=== PATIENT | female | born 1940 | race Caucasian/White ===

== ENCOUNTER 2019-03-23 19:01 | Inpatient (IN) | payer MEDICARE, MEDICAID ==
[~2019-03-23] VITALS: Ht 160 cm; Wt 63.5 kg
[2019-03-23] MEDS ORDERED: Morphine Sulfate 4mg/ml Inj (IV USE ONLY) IVP ONE (20:45)
[2019-03-23 20:54] VITALS: BP 127/58
--- NOTE | 2019-03-23 20:59 | NUR ---
ER Nurse Note: Pt brought in by [facility] from [facility] c/o LT arm swelling and pain. Per EMS, LT arm swelling occured around 1400 and has not gotten better. Arm pain 09/14, pt able to move arm. Pt hx LT mastectomy. Will continue to [facility].
[2019-03-23 21:42] LABS: BASOPHILS % (AUTO) 0.5 % (0.0-2.0); EOSINOPHILS % (AUTO) 0.2 % (0.0-3.0); HEMATOCRIT 30.1 % (37.0-47.0); HEMOGLOBIN 10.1 G/DL (12.0-16.0); LYMPHOCYTES % (AUTO) 9.4 % (20.0-45.0); MEAN CORPUSCULAR VOLUME 91 FL (80-99); MONOCYTES % (AUTO) 8.5 % (1.0-10.0); NEUTROPHILS % (AUTO) 81.5 % (45.0-75.0); PLATELET COUNT 425 K/UL (150-450); RED BLOOD COUNT 3.29 M/UL (4.20-5.40); RED CELL DISTRIBUTION WIDTH 14.3 % (11.6-14.8); WHITE BLOOD COUNT 14.5 K/UL (4.8-10.8)
[2019-03-23 21:54] LABS: ANION GAP 12 mmol/L (5-15); BLOOD UREA NITROGEN 24 mg/dL (7-18); CALCIUM 9.8 MG/DL (8.5-10.1); CARBON DIOXIDE 25 MMOL/L (21-32); CHLORIDE 101 MMOL/L (98-107); CREATININE 1.2 MG/DL (0.55-1.30); POTASSIUM 3.8 MMOL/L (3.5-5.1); SODIUM 138 MMOL/L (136-145)
[2019-03-23 22:04] LABS: ALANINE AMINOTRANSFERASE 20 U/L (12-78); ALBUMIN 2.3 G/DL (3.4-5.0); ALBUMIN/GLOBULIN RATIO 0.4 (1.0-2.7); ALKALINE PHOSPHATASE 75 U/L (46-116); ASPARTATE AMINO TRANSFERASE 15 U/L (15-37); BILIRUBIN,TOTAL 0.3 MG/DL (0.2-1.0)
--- NOTE | 2019-03-23 22:04 | Emergency Room Report ---
History of Present Illness General Chief Complaint: Edema Source: Medical Record, EMS Present Illness HPI Disclaimer: Please note that this report is being documented using DRAGON technology. This can lead to erroneous entry secondary to incorrect interpretation by the dictating instrument. HPI: This is a 78-year-old female with a history of breast cancer status post left mastectomy, COPD, hypothyroidism and dementia presents for evaluation of left upper extremity swelling. Symptoms began earlier today. At her half-way facility was noted that her left upper extremity was edematous, red, tender. The patient is complaining of significant pain. She was given Tylenol with no effect. She is able to move the left upper extremity though it is limited due to severe pain. Denied any trauma or recent injury. The patient is a poor historian. Information mostly obtained from EMS and medical chart. She is denying chest pain, shortness of breath, cough, back pain, abdominal pain , nausea, vomiting or diarrhea. PMH: [place], hypothyroidism, COPD, dementia, breast cancer status post mastectomy PSH: Left mastectomy Allergies: None reported Social Hx: None reported Allergies: Coded Allergies: No Known Allergies (Unverified , 03/23/19) Nursing Documentation-PMH Past Medical History: No History, Except For Hx Hypertension: Yes Review of Systems All Other Systems: negative except mentioned in HPI Physical Exam Vital Signs Date Time Temp Pulse Resp B/P (MAP) Pulse Ox O2 Delivery O2 Flow Rate FiO2 03/23/19 19:22 99.0 80 18 127/58 (81) 95 Room Air General: Awake and alert, uncomfortable, screaming in pain HEENT: NC/AT. EOMI. Cardiovascular: RRR. S1 and S2 normal. No murmur appreciated Resp: Normal work of breathing. No cough, wheezing or crackles appreciated Abdomen: Abdomen is soft, nondistended. Nontender Skin: The left upper extremity is edematous, erythematous and tender to palpation. No overlying skin breakdown or bruising MSK: Normal tone and bulk. Moving all extremities. No obvious deformity. Circumferential edema of the left upper extremity and 3+ pitting edema. Range of motion in the left hand, wrist and elbow as well as the shoulder limited secondary to pain. 2+ radial pulse. Neuro: Awake and alert. Pleasant but a poor historian. Medical Decision Making Diagnostic Impression: Primary Impression: Edema Additional Impression: Cellulitis ER Course This is a 78-year-old female presenting for evaluation of left upper extremity swelling beginning this afternoon. Differential includes was not limited to DVT , cellulitis, venous insufficiency, occult injury. Will obtain a Doppler study to evaluate for deep vein thrombosis, drug broad labs and provide analgesia. She will likely require admission. Laboratory Tests Test 03/23/19 21:10 White Blood Count 14.5 K/UL (4.8-10.8) H Red Blood Count 3.29 M/UL (4.20-5.40) L Hemoglobin 10.1 G/DL (12.0-16.0) L Hematocrit 30.1 % (37.0-47.0) L Mean Corpuscular Volume 91 FL (80-99) Mean Corpuscular Hemoglobin 30.6 PG (27.0-31.0) Mean Corpuscular Hemoglobin Concent 33.5 G/DL (32.0-36.0) Red Cell Distribution Width 14.3 % (11.6-14.8) Platelet Count 425 K/UL (150-450) Mean Platelet Volume 6.5 FL (6.5-10.1) Neutrophils (%) (Auto) 81.5 % (45.0-75.0) H Lymphocytes (%) (Auto) 9.4 % (20.0-45.0) L Monocytes (%) (Auto) 8.5 % (1.0-10.0) Eosinophils (%) (Auto) 0.2 % (0.0-3.0) Basophils (%) (Auto) 0.5 % (0.0-2.0) Sodium Level 138 MMOL/L (136-145) Potassium Level 3.8 MMOL/L (3.5-5.1) Chloride Level 101 MMOL/L (98-107) Carbon Dioxide Level 25 MMOL/L (21-32) Anion Gap 12 mmol/L (5-15) Blood Urea Nitrogen 24 mg/dL (7-18) H Creatinine 1.2 MG/DL (0.55-1.30) Estimate Glomerular Filtration Rate 43.7 mL/min (>60) Glucose Level 181 MG/DL (74-106) H Calcium Level 9.8 MG/DL (8.5-10.1) Total Bilirubin 0.3 MG/DL (0.2-1.0) Aspartate Amino Transferase (AST) 15 U/L (15-37) Alanine Aminotransferase (ALT) 20 U/L (12-78) Alkaline Phosphatase 75 U/L (46-116) Troponin I 0.000 ng/mL (0.000-0.056) Pro-B-Type Natriuretic Peptide 1863 pg/mL (0-125) H Total Protein 7.8 G/DL (6.4-8.2) Albumin 2.3 G/DL (3.4-5.0) L Globulin 5.5 g/dL Albumin/Globulin Ratio 0.4 (1.0-2.7) L EKG Diagnostic Results EKG Time: 21:01 Rate: normal Rhythm: NSR ST Segments: no acute changes Other Impression Sinus rhythm, normal axis, normal intervals, no ST segment changes Rhythm Strip Diag. Results Rhythm Strip Time: 21:01 EP Interpretation: yes Rate: 94 Rhythm: NSR, no PVC's, no ectopy Reevaluation Time: 23:20 Last Vital Signs Date Time Temp Pulse Resp B/P (MAP) Pulse Ox O2 Delivery O2 Flow Rate FiO2 03/23/19 20:54 99.0 96 18 127/58 95 Room Air Reevaluation Impression Preliminary interpretation by emergency spill response technician does not find evidence of DVT but does show significant edema. Official read pending. Labs have returned within normal limits aside from an elevated BN peptide. Troponin is negative. Will give diuretics. Patient will require admission. Will treat for possible cellulitis. Admit to Dr. Goldman on behalf of Dr. Watkins Disposition: ADMITTED INPATIENT Condition: Serious Storm Covarrubias MD Mar 23, 2019 22:04
[2019-03-23] MEDS ORDERED: ASPIR 8181 MG ORAL (22:20)
[2019-03-23] MEDS ORDERED: DOCUSATE SODIU100 MG ORAL (22:20)
[2019-03-23] MEDS ORDERED: ACETAMINOPHEN500 MG ORAL (22:21)
[2019-03-23] MEDS ORDERED: MILK OF MA2400 MG/10 ORAL (22:21)
[2019-03-23] MEDS ORDERED: BISACODYL5 MG ORAL (22:21)
[2019-03-23] MEDS ORDERED: FUROSEMIDE20 M1 ORAL (22:21)
[2019-03-23] MEDS ORDERED: LEXAPRO10 MG ORAL (22:21)
--- NOTE | 2019-03-23 22:22 | NUR ---
ER Nurse Note: All orders completed per ERMD orders. US at bedside. VSS, RA. Pt LT arm red, swollen, unable to move arm without pain. Pt incontenent; kept clean. No falls. All safety measures met; will continue to montior.
[2019-03-23 23:05] VITALS: BP 138/62
--- NOTE | 2019-03-23 23:07 | NUR ---
ER Nurse Note: US completed. Pt VSS, stable. SLIV patent. All orders completed per ERMD orders. All safety measures met; will continue to montior.
[2019-03-23] MEDS ORDERED: cefTRIAXone 1 GM in NS 55 ML IVPB ONE (23:30)
--- NOTE | 2019-03-24 | NUR ---
NURSE NOTES: Received report from Holly Mccall.
--- NOTE | 2019-03-24 00:20 | NUR ---
ER Nurse Note: Report given to RICK Allen for continuity of care. SLIV RT AC; patent. Pt kept clean and dry. All belonging accounted for. All safety measures met.
[2019-03-24 00:23] VITALS: BP 140/70
[2019-03-24] MEDS ORDERED: Milk of Magnesia 30ml Ud ORAL PRN (00:30)
--- NOTE | 2019-03-24 00:30 | NUR ---
NURSE NOTES: Received patient, awake, alert x 2. Moved patient to room 403-1. All belongings accounted for. Left upper arm , cellulitis, swollen. Skin is intact. Incontinent. IV site noted. Bed in low and locked position. Provided safe environment. Oriented patient to the room, and roommate. call light is at bedside. Will continue plan of care.
[2019-03-24] MEDS: HYDROcodone/Acetamin 5/325 tab ORAL PRN ×3 (01:18→21:59)
[2019-03-24 04:00] VITALS: BP 118/68
--- NOTE | 2019-03-24 07:00 | NUR ---
NURSE NOTES: PT AWAKE ALERT, NO DISTRESS. NO SOB. NO C/O PAIN. CALL LIGHT WITHIN REACH. BED IN LOWEST POSITION, LOCKED. WILL MONITOR. TURNED AND REPOSITIONED. ELEVATED LEFT ARM SWOLLEN AND HAS ERYTHEMA
--- NOTE | 2019-03-24 07:10 | NUR ---
HAND-OFF: Report given to RICK Lombardi.
[2019-03-24 08:00] VITALS: BP 113/61
[2019-03-24] MEDS: Aspirin EC 81mg tab ORAL SCH (08:15)
[2019-03-24] MEDS: Heparin 5000 units/ml inj SUBQ SCH ×2 (08:15→21:41)
[2019-03-24] MEDS: Docusate 100mg cap ORAL SCH ×2 (08:16→17:06)
[2019-03-24 08:45] LABS: HEMATOCRIT 32.5 % (37.0-47.0); HEMOGLOBIN 10.9 G/DL (12.0-16.0); MEAN CORPUSCULAR VOLUME 91 FL (80-99); PLATELET COUNT 451 K/UL (150-450); RED BLOOD COUNT 3.55 M/UL (4.20-5.40); RED CELL DISTRIBUTION WIDTH 14.5 % (11.6-14.8); WHITE BLOOD COUNT 14.5 K/UL (4.8-10.8)
[2019-03-24 09:38] LABS: ALANINE AMINOTRANSFERASE 14 U/L (12-78); ALBUMIN 2.3 G/DL (3.4-5.0); ALBUMIN/GLOBULIN RATIO 0.4 (1.0-2.7); ALKALINE PHOSPHATASE 76 U/L (46-116); ANION GAP 8 mmol/L (5-15); ASPARTATE AMINO TRANSFERASE 13 U/L (15-37); BILIRUBIN,TOTAL 0.3 MG/DL (0.2-1.0); BLOOD UREA NITROGEN 20 mg/dL (7-18); CALCIUM 9.6 MG/DL (8.5-10.1); CARBON DIOXIDE 28 MMOL/L (21-32); CHLORIDE 102 MMOL/L (98-107); CREATININE 1.1 MG/DL (0.55-1.30); POTASSIUM 3.8 MMOL/L (3.5-5.1); SODIUM 138 MMOL/L (136-145)
[2019-03-24 10:06] LABS: % IRON SATURATION 1 % (15-50); IRON 9 ug/dL (50-175); TOTAL IRON BINDING CAPACITY 941 ug/dL (250-450)
--- NOTE | 2019-03-24 10:32 | Diagnostic Imaging Report ---
Indication: Left upper extremity swelling Technique: Grayscale and duplex images of the left upper extremity veins Comparison: none Findings: Exam is somewhat limited due to limited mobility of the left arm. This was his ability of the left axillary vein. In the visualized segments, no definite intraluminal thrombus is demonstrated on grayscale and duplex images. Normal phasic Doppler waveforms. Normal compressibility Impression: Somewhat limited exam. No definite evidence of left upper extremity venous thrombosis
[2019-03-24 12:00] VITALS: BP 100/55
--- NOTE | 2019-03-24 14:45 | NUR ---
NURSE NOTES: DID ROUNDS PER DR BURDEN HE WILL PUT ORDERS FOR CT LEFT ARM
[2019-03-24 16:00] VITALS: BP 143/72
--- NOTE | 2019-03-24 19:22 | NUR ---
NURSE NOTES: Patient is in bed, awake, alert x 3. Able to make simple needs known. Respiration is even and unlabored. No complaint of pain or discomfort noted at this time. IV site noted. Skin is intact, warm and dry to touch. Noted with left arm swelling. Abdomen is soft and non distended. Bed in low and locked position. Provided safe environment. Call light is at bedside. Will continue plan of care.
--- NOTE | 2019-03-24 19:43 | NUR ---
CASE MANAGEMENT: REVIEW 78 YEAR OLD FEMALE BIBA FROM [facility] CC: EDEMA . PAIN 9/10 . HX LEFT MASTECTOMY SI: LEFT UPPER EXTREMITY CELLULITIS T 99.0 HR 80 RR 18 BP 127/58 SAT 95% ROOM AIR WBC 14.5 BUN 24 GLUCOSE 181 BNP 1863 IS: MORPHINE IV X1 CEFTRIAXONE IV X1 LASIX IV X1 PATIENT ADMITTED TO MED/SURG UNIT 03/23/2019 DCP: PATIENT IS FROM [facility]
[2019-03-24 19:46] VITALS: BP 114/51
--- NOTE | 2019-03-24 21:30 | Consultation ---
DATE OF CONSULTATION: 03/24/2019 HISTORY OF PRESENT ILLNESS: This is a 78-year-old female with a history of breast cancer, depression, hard of hearing, dementia who has been admitted to the hospital for medical stabilization. The patient is on Lexapro. The patient is presenting with depressed mood, anhedonia, anxiety. Symptoms are manageable. She is hard of hearing and is a poor historian. She was confused, does not know the date. PAST PSYCHIATRIC HISTORY: Depression and anxiety. PAST MEDICAL HISTORY: [place], COPD, hypothyroidism, breast cancer status post mastectomy. ALLERGIES: No known drug allergies. SUBSTANCE ABUSE HISTORY: No known history of illicit drug use or alcohol. MENTAL STATUS EXAMINATION: The patient is alert and oriented times self and place, did not know the date. Poor insight into the situation she is in. Mood is depressed. Affect is constricted. Congruent with mood. Thought process is concrete. Thought content, no suicidal or homicidal ideation. Cognition is impaired. Insight and judgment is impaired. ASSESSMENT: [place] I Dementia. Major depressive disorder [place] II Deferred. [place] III As above. [place] IV Low. [place] V 20. PLAN: 1. The patient will be started on Lexapro 10 mg in the morning. 2. Provide the patient with reality orientation and supportive therapy. Adis Whitlock M.D. DR: Lukas JOB#: [id number] CC:
[2019-03-24] MEDS: cefTRIAXone 1 GM in D5W 55 ML IVPB SCH (22:02)
[2019-03-25] VITALS: BP 119/58
--- NOTE | 2019-03-25 02:30 | Progress Note ---
DATE: 03/24/2019 CARDIOLOGY AND INTERNAL MEDICINE PROGRESS NOTE SUBJECTIVE: Pain has decreased, swelling has not, and redness is persisting. The patient denies any trauma, but she is an unreliable historian. Psychiatric consultation was appreciated. OBJECTIVE: VITAL SIGNS: Blood pressure 143/72, pulse 103, respiratory rate 18, and afebrile. LUNGS: Clear. CARDIAC: Regular. Normal S1 and S2 with a 1/6 systolic apical murmur. ABDOMEN: Soft. EXTREMITIES: A 2+ left upper extremity edema with erythema and warmth. IMAGING DATA: The echocardiogram with normal ejection fraction, moderate mitral and tricuspid regurgitation. IMPRESSION: 1. Left upper extremity cellulitis, component of lymphedema. 2. History of mastectomy and left breast cancer. 3. Hypertensive heart disease. 4. 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 PLAN: 1. Diuresis. 2. Add TREV inhibitor. 3. Antimicrobials. 4. Limb elevation. 5. Imaging studies of the chest and left upper extremity. 6. DVT prophylaxis. Rashaun Goldman M.D. DR: RODNEY JOB#: [id number] CC:
--- NOTE | 2019-03-25 02:30 | History and Physical Report ---
DATE OF ADMISSION: 03/23/2019 REASON FOR ADMISSION: Left upper extremity edema and cellulitis. HISTORY OF PRESENT ILLNESS: This is a 78-year-old female. She [facility] in [facility]. She has a history of left mastectomy due to breast cancer and was noted to have worsening swelling of her left upper extremity over the past day or two. The left extremity was painful, red, and swollen. There was no apparent trauma. The patient did not respond to acetaminophen and had diminished mobility of the extremity due to pain. PAST MEDICAL HISTORY: Includes chronic obstructive pulmonary disease, hypothyroidism, breast cancer with left mastectomy, depression, cerebrovascular disease with dementia, hypothyroidism, coronary artery disease with history of myocardial infarction, and hypertension. ALLERGIES: None. FAMILY HISTORY: Noncontributory. SOCIAL HISTORY: Negative for smoking, alcohol, or substance abuse. The patient may have smoked in the past, but quantity is unclear. MEDICATIONS: Prior to admission, reviewed and reconciled. ALLERGIES: None known. REVIEW OF SYSTEMS: No fevers or chills. No cough or sputum production. No chest pain or leg swelling. No shortness of breath. No melena or bright red blood per rectum. . She is on thyroid replacement. Cholesterol parameters not known. No history of seizure or stroke, but she does have dementia. PHYSICAL EXAMINATION: VITAL SIGNS: Temperature 99, blood pressure 127/58, heart rate 80, and respiratory rate 18. HEENT: Conjunctivae are pink. Oropharynx clear. NECK: Supple. No adenopathy. LUNGS: Clear. BREASTS: Left mastectomy scar clear. No associated adenopathy. ABDOMEN: Soft. CARDIAC: Regular rhythm and rate. Normal S1 and S2 with a fourth heart sound. EXTREMITIES: Left upper extremity with 2+ edema with decreased range of motion, erythema and warmth. NEUROLOGIC: Alert and oriented x2. No focal deficits. Check venous duplex is negative for DVT. LABORATORY DATA: White count 14.5, hemoglobin 10.1, and platelets 425,000. Sodium 138, potassium 3.8, bicarbonate 25, BUN 24, creatinine 1.2, glucose 181, troponin negative. Pro-natriuretic peptide 1863. Albumin 2.3. EKG, sinus rhythm with no acute abnormalities. IMPRESSION: 1. Cellulitis, left upper extremity. 2. Lymphedema with exacerbation. 3. Acute on chronic diastolic congestive heart failure. 4. Hypertensive heart disease. 5. Type 2 diabetes mellitus with hyperglycemia. PLAN: 1. Antimicrobials. 2. Elevate limb. 3. Imaging studies of the left upper extremity, chest x-ray, DVT prophylaxis. 4. Cautious diuresis and optimization of anti-failure and antihypertensive regimen. 5. Echocardiogram to assess left ventricular function. 6. Further recommendations will follow. Rashaun Goldman M.D. DR: REGGIE JOB#: [id number] CC:
[2019-03-25 04:00] VITALS: BP 110/56
--- NOTE | 2019-03-25 07:08 | NUR ---
HAND-OFF: Report given to Holly Croft.
--- NOTE | 2019-03-25 07:10 | NUR ---
NURSE NOTES: Received patient in bed, awake, patient is alert and oriented x2. Not in respiratory/cardiac distress. Patient's left arm is still with pitting edema but no skin break. Elevated left arm on pillow. Bed is in lowest position and locked. Call light within reach, bed alarm is on. Will continue plan of care.
[2019-03-25 07:22] LABS: BASOPHILS % (AUTO) 0.5 % (0.0-2.0); EOSINOPHILS % (AUTO) 0.8 % (0.0-3.0); HEMATOCRIT 33.3 % (37.0-47.0); LYMPHOCYTES % (AUTO) 11.9 % (20.0-45.0); MEAN CORPUSCULAR VOLUME 93 FL (80-99); MONOCYTES % (AUTO) 6.6 % (1.0-10.0); NEUTROPHILS % (AUTO) 80.2 % (45.0-75.0); PLATELET COUNT 489 K/UL (150-450)
[2019-03-25 07:47] LABS: ALANINE AMINOTRANSFERASE 19 U/L (12-78); ALBUMIN/GLOBULIN RATIO 0.3 (1.0-2.7); ALKALINE PHOSPHATASE 75 U/L (46-116); ANION GAP 5 mmol/L (5-15); ASPARTATE AMINO TRANSFERASE 18 U/L (15-37); BILIRUBIN,TOTAL 0.2 MG/DL (0.2-1.0); BLOOD UREA NITROGEN 22 mg/dL (7-18); CARBON DIOXIDE 30 MMOL/L (21-32); CHLORIDE 103 MMOL/L (98-107); CREATININE 1.1 MG/DL (0.55-1.30); POTASSIUM 4.1 MMOL/L (3.5-5.1); SODIUM 138 MMOL/L (136-145)
[2019-03-25 08:00] VITALS: BP 136/70
[2019-03-25] MEDS: Aspirin EC 81mg tab ORAL SCH (09:44)
[2019-03-25] MEDS: Lisinopril 10mg tab ORAL SCH (09:45)
[2019-03-25] MEDS: Docusate 100mg cap ORAL SCH ×2 (09:45→17:09)
[2019-03-25] MEDS: Heparin 5000 units/ml inj SUBQ SCH ×2 (09:47→21:01)
--- NOTE | 2019-03-25 11:28 | NUR ---
MANAGER NEW PRODUCT NOTE SW met w/ pt to assess her needs. Pt presents as tangential and A&O2-3x. Pt states she does not have POA/AD. Pt currently resides at [address] [address] Copy of POLST in the chart- full code. Pt has one adult daughter Yadi Chiu [phone] and she has no contact w/ her in years. Pt was unable to recall the last time she spoke w/ her sister Jayda Camacho [phone]. Pt provided verbal consent to speak to her sister. SW spoke w/ Jayda Camacho in regards to POA documents. Jayda currently resides in [facility]. STEVENSON encouraged her to consult w/ her mergers and acquisitions attorney if possible to be POA from out of state or Jayda plans to visit pt in this April and initiate POA. Jayda verbalized understanding. Per Jayda, pt has hx of Bipolar D/O and inpatient psych admission, was recently at [facility] a few weeks ago. Pt was evicted from her apartment in [place] last year. Pt receives SSDI and the payee is unknown at this time. Jayda also shared pt's daughter has substance abuse issue and she has been unable to locate her daughter, thus the daughter will not take a part of pt's care/tx. Pt's sister JAYDA CAMACHO [phone] wants to be notified of pt's DC. Signed: 03/25/19 at 1139 by GILBERT GAMINO <Co-Signature Required>
[2019-03-25 12:00] VITALS: BP 119/58
--- NOTE | 2019-03-25 15:22 | Diagnostic Imaging Report ---
Indication: Cough Technique: One view of the chest Comparison: none Findings: Surgical clips are seen in the left axilla. There is some atelectasis or scarring in the right midlung. Lungs and pleural spaces are otherwise clear. The heart size is normal. Impression: Right midlung atelectasis or scarring. No acute process otherwise
--- NOTE | 2019-03-25 15:31 | NUR ---
RADIOLOGY DEPT., ENTIRE ARM AND HAND IMAGED.-P.DYE
--- NOTE | 2019-03-25 15:48 | Diagnostic Imaging Report ---
Indication: Pain and swelling Technique: 2 views of the left hand Comparison: none Findings: No acute fractures. No dislocations. There is mild degenerative joint space narrowing of the second through fifth distal interphalangeal joints. Bones are osteoporotic. Impression: No acute bony trauma Degenerative changes Osteoporotic changes
[2019-03-25 16:00] VITALS: BP 130/76
--- NOTE | 2019-03-25 16:43 | Diagnostic Imaging Report ---
Indications: Pain, swelling, lymphedema Technique: Two views of the left humerus Comparison: None Findings: Positioning is suboptimal; per technologist, patient difficult to position. No definite acute fractures. No dislocations. No radiopaque foreign body Impression: Limited; no gross acute abnormality
--- NOTE | 2019-03-25 17:21 | Diagnostic Imaging Report ---
. Indications: Arm pain Technique: Two views of the left forearm Comparison: None Findings: Positioning is somewhat limited as patient difficult to position due to pain. No acute fractures. No dislocations. The joint spaces are preserved. Impression: Negative
--- NOTE | 2019-03-25 18:00 | NUR ---
NURSE NOTES: Patient refused to take docusate. RN -reducated on medication but patient refused. No bowel movement today.Will continue to monitor.
--- NOTE | 2019-03-25 19:15 | Progress Note ---
DATE: 03/25/2019 SUBJECTIVE: This is a 78-year-old female, who is in bed. She has a change of condition today. She is more confused. Mood irritable and was her nurse today, yelling, screaming. She is hard of hearing. She was confused about the date and situation today. MENTAL STATUS EXAMINATION: Alert and oriented times self and place. Mood is irritable and angry. Affect is constricted, congruent with mood. Thought process is concrete. Thought content, no suicidal or homicidal ideation. Cognition is impaired. PLAN: 1. Continue the citalopram. 2. Ativan as needed. 3. We will continue to reassess. 4. Discussed with the nurse. Adis Whitlock M.D. DR: GUILLERMINA JOB#: [id number] CC: VANESSA
--- NOTE | 2019-03-25 19:24 | NUR ---
HAND-OFF: Report given to
--- NOTE | 2019-03-25 19:30 | NUR ---
NURSE NOTES: Received patient in bed. A&OX1 with confusion. IV site patent and intact. Bed in lowest position. Call light within reach. Will continue to monitor.
[2019-03-25 20:00] VITALS: BP 137/66
[2019-03-25] MEDS: cefTRIAXone 1 GM in D5W 55 ML IVPB SCH (22:24)
[2019-03-26] VITALS: BP 135/72
--- NOTE | 2019-03-26 02:00 | Progress Note ---
DATE: 03/25/2019 CARDIOLOGY AND INTERNAL MEDICINE PROGRESS NOTE SUBJECTIVE: The patient still with left arm pain. X-rays were negative for fracture. OBJECTIVE: VITAL SIGNS: She remains afebrile. Blood pressure 137/66, pulse 99, respiratory rate 20. LUNGS: Clear. CARDIAC: Regular. ABDOMEN: Soft. EXTREMITIES: Left upper extremity with 1+ edema. Warm ____ erythema, slightly better. Lower extremities without edema. LABORATORY DATA: Chest x-ray with scarring at the right base. Labs notable for B12 level of 105. Albumin 2.0. Pro-natriuretic peptide down to 1436. BUN 22, creatinine 1.1, and potassium 4.1. IMPRESSION: 1. Cellulitis, left upper extremity. 2. Breast cancer with left mastectomy. 3. Acute on chronic diastolic congestive heart failure. 4. Severe protein-calorie malnutrition. 5. Severe B12 deficiency. 6. Severe iron deficiency. PLAN: 1. Continue diuresis. 2. Antimicrobials and skin care. 3. B12 supplementation. 4. Iron supplement. 5. Stool occult blood testing. Rashaun Goldman M.D. DR: REGGIE JOB#: [id number] CC:
[2019-03-26 04:00] VITALS: BP 125/65
--- NOTE | 2019-03-26 07:14 | NUR ---
HAND-OFF: Report given to Leanna Sims RN.
--- NOTE | 2019-03-26 07:16 | NUR ---
NURSE NOTES: Received patient in bed, awake, patient is alert and oriented x2. Not in respiratory/cardiac distress. Patient's left arm is still swollen but no skin break. Elevated left arm on pillow. Bed is in lowest position and locked. Call light within reach, bed alarm is on. Will continue plan of care.
[2019-03-26 08:00] VITALS: BP 131/61
[2019-03-26] MEDS: Docusate 100mg cap ORAL SCH (09:00)
--- NOTE | 2019-03-26 09:11 | NUR ---
NURSE NOTES: Received call from Shantell from microbiology. Patient is MRSA nares positive. RN made aware, will relocate patient as soon as possible.
[2019-03-26] MEDS: Lisinopril 10mg tab ORAL SCH (09:45)
[2019-03-26] MEDS: Aspirin EC 81mg tab ORAL SCH (09:45)
[2019-03-26] MEDS: Vitamin B12 1000mcg/ml Inj IM SCH (09:46)
[2019-03-26] MEDS: Heparin 5000 units/ml inj SUBQ SCH ×2 (09:47→20:53)
[2019-03-26] MEDS: Docusate 100mg/10ml Liq ORAL SCH ×2 (10:00→17:23)
[2019-03-26] MEDS ORDERED: Docusate 100mg/10ml Liq NG SCH (10:00)
--- NOTE | 2019-03-26 10:19 | NUR ---
NURSE NOTES: Patient is off the unit for CT of left shoulder in stable condition.
--- NOTE | 2019-03-26 10:50 | NUR ---
NURSE NOTES: Patient came back from CT in stable condition.
--- NOTE | 2019-03-26 10:55 | NUR ---
NURSE NOTES: Transferred patient to another room due to MRSA of nares. Dr. Goldman is aware of MRSA of nares.
[2019-03-26 12:00] VITALS: BP 133/72
--- NOTE | 2019-03-26 13:35 | NUR ---
CASE MANAGEMENT:REVIEW SI;LAILA CELLULITIS. AC/CHR CHF. SEVERE B-12 AND IRON DEFICIENCY, 98.0 94 20 135/72 96% ON RA NO LABS AVAILABLE IS;IRON SUCROSE IV HS CYANACOBALAMIN IM QD ROCEPHIN IV Q24 HRS LASIX IV QD K-DUR PO QD MED SURG STATUS PLAN; DIURESIS. B-12 & IRON SUPPLEMENTATION. OB TESTING. DCP;TO SANDRA XIAO
--- NOTE | 2019-03-26 15:04 | Diagnostic Imaging Report ---
Indication: Left shoulder pain Technique: No IV contrast given, reason not stated. Spiral acquisitions obtained through the left shoulder Multiplanar reconstructions were generated. Total dose length product 105 mGycm. CTDIvol(s) 4 mGy. Radiation dose was minimized using automated exposure control Comparison: none Findings: No acute fracture. No dislocations. There is minimal infiltration of the subcutaneous fat anterior to the proximal forearm. No definite joint effusion. There are surgical clips in the left axilla. There is evidence of prior left mastectomy. The included left lung is clear. There are degenerative changes of the cervical and thoracic spine Impression: No acute bony trauma Equivocal very slight increased attenuation of the anterior upper extremity subcutaneous fat, could indicate cellulitis given stated clinical history of swelling and redness No definite evidence of abscess. Note, however, that evaluation for such is very limited in the absence of IV contrast administration Evidence of prior left axillary node dissection and left mastectomy The CT scanner at [facility] is accredited by the [employer] and the scans are performed using protocols designed to limit radiation exposure to as low as reasonably achievable to attain images of sufficient resolution adequate for diagnostic evaluation.
[2019-03-26 16:00] VITALS: BP 130/60
[2019-03-26] MEDS: HYDROcodone/Acetamin 5/325 tab ORAL PRN (17:23)
--- NOTE | 2019-03-26 19:34 | NUR ---
HAND-OFF: Report given to
--- NOTE | 2019-03-26 19:35 | NUR ---
NURSE NOTES: Received patient in bed. A&OX1 with confusion. IV site patent and intact. Bed in lowest position. Call light within reach. Will continue to monitor.
[2019-03-26 20:00] VITALS: BP 131/58
[2019-03-26] MEDS ORDERED: Iron Sucrose 100 MG in NS 55 ML IV ONE (21:00)
[2019-03-26] MEDS: cefTRIAXone 1 GM in D5W 55 ML IVPB SCH (23:08)
[2019-03-27] VITALS: BP 103/72
[2019-03-27] MEDS ORDERED: Vancomycin 1.25gm/NS Premix IVPB ONE (02:00)
--- NOTE | 2019-03-27 02:16 | Progress Note ---
DATE: 03/26/2019 SUBJECTIVE: The patient is more confused than the first day of the hospitalization. The patient is also irritable. Unable to answer simple questions. MENTAL STATUS EXAMINATION: The patient is alert and oriented times self and place. Mood is irritable. Affect is constricted, congruent with mood. Thought process is concrete. Thought content, no suicidal or homicidal ideation. Cognition is impaired. Insight and judgment are impaired. ASSESSMENT: 1. Acute encephalopathy. 2. Major depressive disorder. PLAN: 1. The patient may benefit from low-dose of antipsychotics. 2. Continue Lexapro. Adis Whitlock M.D. DR: JORDY JOB#: [id number] CC:
--- NOTE | 2019-03-27 02:46 | Progress Note ---
DATE: 03/26/2019 CARDIOLOGY AND INTERNAL MEDICINE PROGRESS NOTE SUBJECTIVE: The patient still has left arm pain with motion. A CT scan reveals no evidence of bony abnormalities or fracture based on changes consistent with cellulitis. OBJECTIVE: VITAL SIGNS: Blood pressure 131/58, heart rate 78, respiratory rate 20, and afebrile. LUNGS: Clear. CARDIAC: Regular. ABDOMEN: Soft. EXTREMITIES: 1+ edema, left upper extremity with erythema and tenderness. LABORATORY DATA: No new lab studies. IMPRESSION: 1. Acute diastolic congestive heart failure. 2. Cellulitis, left upper extremity. 3. History of breast cancer on the left. 4. Iron and B12 deficiency. PLAN: 1. Antimicrobials . 2. Skin care. 3. Vitamin supplementation. 4. Diuresis. 5. Stool occult blood test. Rashaun Goldman M.D. DR: MICHEL JOB#: [id number] CC:
[2019-03-27 03:58] VITALS: BP 123/66
--- NOTE | 2019-03-27 07:18 | NUR ---
HAND-OFF: Report given to Geraldo CABRERA.
[2019-03-27 07:24] LABS: BASOPHILS % (AUTO) 0.8 % (0.0-2.0); EOSINOPHILS % (AUTO) 1.6 % (0.0-3.0); HEMATOCRIT 31.4 % (37.0-47.0); HEMOGLOBIN 10.4 G/DL (12.0-16.0); LYMPHOCYTES % (AUTO) 9.3 % (20.0-45.0); MEAN CORPUSCULAR VOLUME 91 FL (80-99); MONOCYTES % (AUTO) 8.9 % (1.0-10.0); NEUTROPHILS % (AUTO) 79.3 % (45.0-75.0); PLATELET COUNT 519 K/UL (150-450); RED BLOOD COUNT 3.45 M/UL (4.20-5.40); WHITE BLOOD COUNT 9.6 K/UL (4.8-10.8)
[2019-03-27 07:26] LABS: ALANINE AMINOTRANSFERASE 28 U/L (12-78); ALBUMIN 1.7 G/DL (3.4-5.0); ALBUMIN/GLOBULIN RATIO 0.3 (1.0-2.7); ALKALINE PHOSPHATASE 67 U/L (46-116); ANION GAP 8 mmol/L (5-15); ASPARTATE AMINO TRANSFERASE 27 U/L (15-37); BILIRUBIN,TOTAL 0.2 MG/DL (0.2-1.0); BLOOD UREA NITROGEN 24 mg/dL (7-18); CARBON DIOXIDE 25 MMOL/L (21-32); CHLORIDE 104 MMOL/L (98-107); CREATININE 0.8 MG/DL (0.55-1.30); POTASSIUM 4.1 MMOL/L (3.5-5.1); SODIUM 137 MMOL/L (136-145)
--- NOTE | 2019-03-27 07:28 | NUR ---
NURSE NOTES: Patient in supine position, awake and alert, bed in lowest position, call light within reach, on room air, in no apparent distress.
[2019-03-27 08:00] VITALS: BP 126/69
[2019-03-27] MEDS: Docusate 100mg/10ml Liq ORAL SCH ×2 (09:00→17:11)
[2019-03-27] MEDS: Aspirin EC 81mg tab ORAL SCH (09:53)
[2019-03-27] MEDS: Vitamin B12 1000mcg/ml Inj IM SCH (09:54)
[2019-03-27] MEDS: Lisinopril 10mg tab ORAL SCH (09:56)
[2019-03-27] MEDS: Heparin 5000 units/ml inj SUBQ SCH ×2 (09:57→20:51)
[2019-03-27 12:00] VITALS: BP 130/71
[2019-03-27 16:00] VITALS: BP 133/84
--- NOTE | 2019-03-27 19:10 | NUR ---
NURSE NOTES: received patient on bed sleeping comfortably. with iv line on the right ac, saline lock. no facial grimacing noted. bed locked and in lowest position. call light and light button within easy reach. will continue plan of care.
--- NOTE | 2019-03-27 19:39 | NUR ---
HAND-OFF: Report given to Jillian Pineda RN. Patient in supine position, sleeping, respirations at 15 breaths per minute, bed in lowest position, call light within reach, no c/o pain, no SOB, in no apparent distress.
[2019-03-27 20:00] VITALS: BP 111/62
[2019-03-27] MEDS: Iron Sucrose 100 MG in NS 55 ML IV SCH (20:51)
[2019-03-27] MEDS: cefTRIAXone 1 GM in D5W 55 ML IVPB SCH (22:08)
--- NOTE | 2019-03-27 23:15 | Progress Note ---
DATE: 03/27/2019 CARDIOLOGY PROGRESS NOTE SUBJECTIVE: The patient is without shortness of breath. She still has pain over left upper extremity with movement. OBJECTIVE: VITAL SIGNS: Blood pressure 133/84, pulse 86, respiratory rate 20, afebrile. LUNGS: Clear. CARDIAC: Regular. ABDOMEN: Soft. EXTREMITIES: A 1+ edema, diminished erythema, left upper extremity. No lower extremity edema. LABORATORY DATA: Sodium 137, potassium 4.1, bicarb 25, BUN 24, creatinine 0.8 Pro-natriuretic peptide down to 562, albumin 1.7. White count 9.6, hemoglobin 10.4. IMPRESSION: 1. Cellulitis. 2. Sepsis. 3. Recovered anemia. 4. Acute on chronic diastolic congestive heart failure, improved. 5. Left breast cancer, mastectomy, and lymphedema ongoing. 6. Severe protein-calorie malnutrition. 7. Iron deficiency and B12 deficiency. PLAN: 1. Maintenance diuretic therapy now. 2. Discontinue IV Lasix. 3. Continue antimicrobials. 4. Limb elevation, pain control. 5. Discharge planning. 6. Vitamin supplementation. 7. Protein supplement. Arcadio Valdez JOB#: [id number] CC:
[2019-03-28] VITALS: BP 140/74
[2019-03-28] MEDS: Vancomycin 750mg/NS 275ml IVPB SCH ×2 (01:17)
--- NOTE | 2019-03-28 01:44 | NUR ---
NURSE NOTES: pt kept on sliding down on bed. reposition patient for comfort. kept clean and dry.provided rest and comfort. bed locked and in lowest position. call light and light button. will continue plan of care.
[2019-03-28 04:00] VITALS: BP 147/66
--- NOTE | 2019-03-28 07:21 | General Progress Note ---
Assessment/Plan Problem List: (1) Schizophrenia ICD Codes: F20.9 - Schizophrenia, unspecified SNOMED: 77366251 (2) Toxic metabolic encephalopathy ICD Codes: G92 - Toxic encephalopathy SNOMED: 028543218 (3) Edema ICD Codes: R60.9 - Edema, unspecified SNOMED: 271593637, 583817724 (4) Cellulitis ICD Codes: L03.90 - Cellulitis, unspecified SNOMED: 574497568 Status: stable Assessment/Plan: iv abx per id diuresis per cards psych rx monitor lytes dvt/stress ulcer prophylaxis elevate arm Subjective ROS Limited/Unobtainable: No Constitutional: Reports: weakness HEENT: Reports: no symptoms Cardiovascular: Reports: no symptoms Respiratory: Reports: no symptoms Gastrointestinal/Abdominal: Reports: no symptoms Genitourinary: Reports: no symptoms Neurologic/Psychiatric: Reports: no symptoms Endocrine: Reports: no symptoms Hematologic/Lymphatic: Reports: no symptoms Allergies: Coded Allergies: No Known Allergies (Unverified , 03/23/19) All Systems: reviewed and negative except above Subjective no new complaints. decreased pain and swelling left arm. no fevers. on iv abx and iv lasix Objective Last 24 Hour Vital Signs Date Time Temp Pulse Resp B/P (MAP) Pulse Ox O2 Delivery O2 Flow Rate FiO2 03/28/19 04:00 98.3 88 20 147/66 (93) 98 03/28/19 00:00 99.9 89 21 140/74 (96) 98 03/27/19 21:00 Room Air 03/27/19 20:00 99.2 80 20 111/62 (78) 98 03/27/19 16:00 98.3 86 20 133/84 (100) 98 03/27/19 12:00 98.0 81 19 130/71 (90) 98 03/27/19 09:56 126/69 03/27/19 09:00 Room Air 03/27/19 08:00 97.8 84 19 126/69 (88) 97 Intake and Output 03/27/19 03/28/19 19:00 07:00 Intake Total 880 ml 866.666 ml Balance 880 ml 866.666 ml Intake Oral 880 ml 150 ml IV Total 716.666 ml # Voids 8 3 Height (Feet): 5 Height (Inches): 3.00 Weight (Pounds): 140 General Appearance: WD/WN, alert Neck: supple Cardiovascular: regular rhythm Respiratory/Chest: lungs clear Abdomen: normal bowel sounds, non tender, soft, no organomegaly Edema: 2+ Arm (L) Neurologic: under presser II-XII grossly normal, alert, oriented x 3, responsive Danial Watkins MD Mar 28, 2019 07:21
--- NOTE | 2019-03-28 07:22 | NUR ---
HAND-OFF: Report given to david plunkett. endorsed that the pt is high risk for fall. with a dx of dementia . patient kept on sliding down the bed and likes to hang her legs on the siderails. reiterated to observe fall risk preq. bed locked and in lowest position.
--- NOTE | 2019-03-28 07:23 | NUR ---
NURSE NOTES: Received patient in bed asleep, easily aroused. No SOB or acute distress. IV line intact and patent. Legs dangling over side rails, tucked in blanket to prevent falling. Side rails kept up. Bed locked in lowest position, alarm on high sensitivity setting. Call light within reach. Will continue frequent rounding rounding and plan of care.
[2019-03-28 08:00] VITALS: BP 140/78
[2019-03-28] MEDS: Docusate 100mg/10ml Liq ORAL SCH ×2 (08:43→17:25)
[2019-03-28] MEDS: Vitamin B12 1000mcg/ml Inj IM SCH (08:43)
[2019-03-28] MEDS: Aspirin EC 81mg tab ORAL SCH (08:44)
[2019-03-28] MEDS: Lisinopril 10mg tab ORAL SCH (08:44)
[2019-03-28] MEDS: Heparin 5000 units/ml inj SUBQ SCH ×2 (08:45→20:45)
[2019-03-28 12:00] VITALS: BP 116/67
--- NOTE | 2019-03-28 14:56 | NUR ---
CASE MANAGEMENT:REVIEW SI;TOX MET ENCEPHALOPATHY. EDEMA. CELLULITIS. AC/CHR CHF. 99.9 89 21 147/66 97% ON RA NO LABS AVAILABLE IS;VANCOMYCIN IV Q24 HRS IRON SUCROSE HS ROCEPHIN IV Q24 HRS ASA PO QD K-DUR PO QD MED SURG STATUS PLAN; DIURESIS PER CARDIO IV ABX PER ID PSYCH DCP;FROM SANDR[facility] XIAO
--- NOTE | 2019-03-28 15:45 | Progress Note ---
DATE: 03/28/2019 SUBJECTIVE: The patient is more manageable, calmer, asleep and arousable. The patient is having episodes of confusion and is forgetful. MENTAL STATUS EXAMINATION: The patient is alert and oriented times self and place. Mood is neutral. Affect is constricted. Congruent with mood. Thought process is linear. Thought content, no suicidal or homicidal ideation. ASSESSMENT: 1. Cognitive impairment versus dementia. 2. Major depressive disorder. PLAN: 1. Lexapro 10 mg in the morning. 2. Provide the patient with reality orientation and supportive therapy. Adis Whitlock M.D. DR: Lukas JOB#: [id number] CC:
[2019-03-28 16:00] VITALS: BP 124/75
--- NOTE | 2019-03-28 17:52 | NUR ---
NURSE NOTES: Left message for Dr Goldman regarding patient's rashes and suspicion of scabies by wound nurse. Awaiting callback.
--- NOTE | 2019-03-28 18:12 | NUR ---
NURSE NOTES: Patient with generalized body rash. Referred to wound nurse.
--- NOTE | 2019-03-28 18:15 | NUR ---
NURSE NOTES:WOUND CARE NOTES: Called by primary nurse to evaluate pt with rash. Pt noted to have raised pink and red rash few with scales to both upper extremities including both axillae and both wrists,chest ,abdomen including both groin areas ,back ,bilat lower ext including areas around both ankles.Few scaled areas noted. Pt verbalized she has been itchy for few days. Primary nurse instructed to call PCP and communicate observation and for further orders.
--- NOTE | 2019-03-28 18:26 | NUR ---
NURSE NOTES: Spoke to Dr Goldman, will see patient in the morning. No new orders for now. Wound nurse made aware.
--- NOTE | 2019-03-28 19:15 | Progress Note ---
DATE: 03/28/2019 CARDIOLOGY PROGRESS NOTE SUBJECTIVE: The patient had itching and a rash concerned about possible scabies. The patient has no chest pain. No shortness of breath. PHYSICAL EXAMINATION: VITAL SIGNS: Blood pressure 147/66, pulse 88, respiratory rate 20. LUNGS: Clear. CARDIAC: Regular. Normal S1 and S2 ABDOMEN: Soft. EXTREMITIES: With less edema especially in the left upper extremity. Erythema has diminished as well. IMPRESSION: 1. Possible scabies. 2. Improving cellulitis, left upper extremity. 3. History of left breast cancer with mastectomy and lymph node dissection. 4. Acute on chronic diastolic congestive heart failure clinically improved. PLAN: 1. Transition to maintenance diuretic dose. 2. Antimicrobials. 3. Await Infectious Diseases followup. 4. Monitor blood pressure. 5. Reassess for additional therapy. Rashaun Goldman M.D. DR: Meredith JOB#: [id number] CC:
--- NOTE | 2019-03-28 19:20 | NUR ---
per kiarra, she called dr. connors regarding the pt's rashes. per md kiarra will come here tomorrow to evaluate her. pt is restless due to the rashes all over the body. will ensure safety.charge nurse made aware. Addendum: 03/29/19 at 0347 by Alexandra Pineda RN NURSE NOTES:
--- NOTE | 2019-03-28 19:26 | NUR ---
HAND-OFF: Report given to jacqueline. Endorsed high fall risk status to oncoming shift. Side rails raised. Bed locked in lowest position, alarm on high sensitivity setting. Call light within reach. Frequent rounding continues.
--- NOTE | 2019-03-28 19:28 | NUR ---
NURSE NOTES: Received pt on bed, awake. confused. denies any pain or discomfort. bed locked and in lowest position. iv site on the right ac. call light and light button within easy reach. bed locked and in lowest position. will continue plan of care.
[2019-03-28 20:00] VITALS: BP 124/75
[2019-03-28] MEDS: Iron Sucrose 100 MG in NS 55 ML IV SCH (20:44)
[2019-03-28] MEDS: LORazepam 1mg tab ORAL PRN (20:44)
[2019-03-28] MEDS: cefTRIAXone 1 GM in D5W 55 ML IVPB SCH (21:23)
[2019-03-29] VITALS: BP 121/59
[2019-03-29] MEDS: Vancomycin 750mg/NS 275ml IVPB SCH ×2 (01:02)
--- NOTE | 2019-03-29 02:25 | NUR ---
NURSE NOTES: patient on bed awake, sliding down on bed. reposition pt. provided rest and comfort. ensured safety by locking the bed and in lowest position. call light and light button within easy reach. will continue plan of care.
[2019-03-29 04:00] VITALS: BP 106/56
--- NOTE | 2019-03-29 07:09 | NUR ---
HAND-OFF: Report given to david rowland. endorsed that the pt is high risk for fall. with a dx of dementia . patient kept on sliding down the bed and likes to hang her legs on the siderails. reiterated to observe fall risk preq. bed locked and in lowest position.call light and light button within easy reach.
[2019-03-29 07:44] LABS: ANION GAP 10 mmol/L (5-15); BLOOD UREA NITROGEN 22 mg/dL (7-18); CALCIUM 9.9 MG/DL (8.5-10.1); CARBON DIOXIDE 23 MMOL/L (21-32); CHLORIDE 105 MMOL/L (98-107); POTASSIUM 4.1 MMOL/L (3.5-5.1); SODIUM 138 MMOL/L (136-145)
[2019-03-29 08:00] VITALS: BP 141/80
[2019-03-29 08:27] LABS: BASOPHILS % (AUTO) 0.8 % (0.0-2.0); EOSINOPHILS % (AUTO) 2.3 % (0.0-3.0); HEMATOCRIT 29.5 % (37.0-47.0); HEMOGLOBIN 9.7 G/DL (12.0-16.0); LYMPHOCYTES % (AUTO) 13.2 % (20.0-45.0); MEAN CORPUSCULAR VOLUME 91 FL (80-99); MONOCYTES % (AUTO) 11.8 % (1.0-10.0); NEUTROPHILS % (AUTO) 71.9 % (45.0-75.0); PLATELET COUNT 556 K/UL (150-450); RED BLOOD COUNT 3.23 M/UL (4.20-5.40); RED CELL DISTRIBUTION WIDTH 15.2 % (11.6-14.8); WHITE BLOOD COUNT 7.9 K/UL (4.8-10.8)
[2019-03-29] MEDS: Vitamin B-12 500mcg tab ORAL SCH (08:52)
[2019-03-29] MEDS: LORazepam 1mg tab ORAL PRN ×2 (08:52→17:47)
[2019-03-29] MEDS: Lisinopril 10mg tab ORAL SCH (08:52)
[2019-03-29] MEDS: HYDROcodone/Acetamin 5/325 tab ORAL PRN (08:54)
[2019-03-29] MEDS: Heparin 5000 units/ml inj SUBQ SCH ×2 (08:55→21:26)
[2019-03-29] MEDS: Docusate 100mg/10ml Liq ORAL SCH ×2 (08:56→17:47)
[2019-03-29] MEDS: Aspirin EC 81mg tab ORAL SCH (08:56)
--- NOTE | 2019-03-29 09:00 | NUR ---
NURSE NOTES: PT AXOX1, RESTLESS, YELLING, STATES SHE IS IN PAIN. RN ADMINISTERED PRN NORCO 5/325 ORDERED. LUE SWELLING NOTED, ELEVATED LUE ON PILLOW. PT EDUCATED TO KEEP LUE ELEVATED. PT IN SEMI-AGUIRRE'S POSITION. BED IN LOWEST POSITION WITH BEDSIDE RAILS X3 RAISED. BED ALARM ON ZONE 1. CALL LIGHT WITHIN REACH. WILL CONTINUE TO MONITOR.
--- NOTE | 2019-03-29 11:00 | General Progress Note ---
Assessment/Plan Problem List: (1) Schizophrenia ICD Codes: F20.9 - Schizophrenia, unspecified SNOMED: 45006320 (2) Toxic metabolic encephalopathy ICD Codes: G92 - Toxic encephalopathy SNOMED: 085436066 (3) Edema ICD Codes: R60.9 - Edema, unspecified SNOMED: 688937888, 610482838 (4) Cellulitis ICD Codes: L03.90 - Cellulitis, unspecified SNOMED: 341863643 Status: stable Assessment/Plan: iv abx per id diuresis per cards psych rx monitor lytes dvt/stress ulcer prophylaxis elevate arm Subjective ROS Limited/Unobtainable: No Constitutional: Reports: weakness HEENT: Reports: no symptoms Cardiovascular: Reports: no symptoms Respiratory: Reports: no symptoms Gastrointestinal/Abdominal: Reports: no symptoms Genitourinary: Reports: no symptoms Neurologic/Psychiatric: Reports: no symptoms Endocrine: Reports: no symptoms Hematologic/Lymphatic: Reports: no symptoms Allergies: Coded Allergies: No Known Allergies (Unverified , 03/23/19) All Systems: reviewed and negative except above Subjective no new complaints. decreased pain and swelling left arm. no fevers. on iv abx. id eval pending Objective Last 24 Hour Vital Signs Date Time Temp Pulse Resp B/P (MAP) Pulse Ox O2 Delivery O2 Flow Rate FiO2 03/29/19 08:52 141/80 03/29/19 08:00 98.3 93 19 141/80 (100) 93 03/29/19 04:00 97.8 89 20 106/56 (73) 96 03/29/19 00:00 98.2 80 21 121/59 (79) 96 03/28/19 21:00 Room Air 03/28/19 20:00 98.0 86 18 124/75 (91) 98 03/28/19 16:00 98.0 86 18 124/75 (91) 98 03/28/19 12:00 97.8 81 18 116/67 (83) 97 Intake and Output 03/28/19 03/29/19 19:00 07:00 Intake Total 1000 ml 200 ml Balance 1000 ml 200 ml Intake Oral 1000 ml 200 ml # Voids 8 5 Laboratory Tests 03/29/19 06:50: White Blood Count 7.9, Red Blood Count 3.23L, Hemoglobin 9.7L, Hematocrit 29.5L , Mean Corpuscular Volume 91, Mean Corpuscular Hemoglobin 30.0, Mean Corpuscular Hemoglobin Concent 32.8, Red Cell Distribution Width 15.2H, Platelet Count 556H, Mean Platelet Volume 5.6L, Neutrophils (%) (Auto) 71.9, Lymphocytes (%) (Auto) 13.2L, Monocytes (%) (Auto) 11.8H, Eosinophils (%) (Auto ) 2.3, Basophils (%) (Auto) 0.8, Sodium Level 138, Potassium Level 4.1, Chloride Level 105, Carbon Dioxide Level 23, Anion Gap 10, Blood Urea Nitrogen 22H, Creatinine 1.0, Estimat Glomerular Filtration Rate 53.9, Glucose Level 146H , Calcium Level 9.9, Magnesium Level 2.0, Pro-B-Type Natriuretic Peptide 540H Height (Feet): 5 Height (Inches): 3.00 Weight (Pounds): 140 Objective General Appearance: WD/WN, alert Neck: supple Cardiovascular: regular rhythm Respiratory/Chest: lungs clear Abdomen: normal bowel sounds, non tender, soft, no organomegaly Edema: 2+ Arm (L) Neurologic: denture finisher II-XII grossly normal, alert, oriented x 3, responsive Danial Watkins MD Mar 29, 2019 11:00
[2019-03-29 12:00] VITALS: BP 106/66
[2019-03-29 16:00] VITALS: BP 131/66
--- NOTE | 2019-03-29 19:15 | NUR ---
HAND-OFF: Report given to Yris KUMAR RN.
--- NOTE | 2019-03-29 19:36 | NUR ---
NURSE NOTES: Received patient in bed, awake, disoriented, confused, total care, no acute distress noted, fall precautions are enforced, call light is within reach, bed alarm is on, bed lowered. IV site is clean dry and intact, will continue to monitor for comfort and safety.
[2019-03-29 20:00] VITALS: BP 129/74
[2019-03-29] MEDS: Iron Sucrose 100 MG in NS 55 ML IV SCH (21:25)
[2019-03-29] MEDS: cefTRIAXone 1 GM in D5W 55 ML IVPB SCH (23:08)
[2019-03-30] VITALS: BP 137/74
--- NOTE | 2019-03-30 02:15 | Progress Note ---
DATE: 03/29/2019 SUBJECTIVE: Decreased pain and swelling noted, no fevers. PHYSICAL EXAMINATION: VITAL SIGNS: Blood pressure 141/80, pulse 93, respiratory rate 19. SKIN: No itching. LUNGS: Diminished breath sounds. CARDIAC: Regular. ABDOMEN: Soft. EXTREMITIES: Left upper extremity with less edema. LABORATORY AND DIAGNOSTIC DATA: White count 7.9, hemoglobin is 9.7. Potassium 4.1. Pro-natriuretic peptide 540. IMPRESSION: 1. Cellulitis. 2. Acute on chronic diastolic congestive heart failure. 3. Possible scabies. 4. Iron-deficiency. 5. B12 deficiency. PLAN: 1. Vitamin supplement. 2. Maintenance diuretic. 3. Antimicrobials. 4. Skin care. Rashaun Goldman M.D. DR: Meredith JOB#: [id number] CC:
[2019-03-30] MEDS: Vancomycin 750mg/NS 275ml IVPB SCH ×2 (02:47)
--- NOTE | 2019-03-30 03:45 | Progress Note ---
DATE: 03/29/2019 SUBJECTIVE: The patient is more confused than initial evaluation, who was able to answer the questions appropriately and the patient is more confused. MENTAL STATUS EXAMINATION: The patient is alert, confused, and disoriented. Mood is anxious. Affect is flat. Thought process, there is a paucity of thought content. Thought content, no suicidal or homicidal ideation. Cognition is impaired. Insight and judgment is impaired. ASSESSMENT: 1. Major depressive disorder. 2. Dementia. 3. Acute encephalopathy. PLAN: 1. We will continue current medications. 2. Provide the patient with reality orientation. Adis Whitlock M.D. DR: ANIYAH JOB#: [id number] CC:
[2019-03-30 04:00] VITALS: BP 122/87
--- NOTE | 2019-03-30 06:57 | NUR ---
NURSE NOTES: Received report from RICK Hays. Patient sleeping in supine position, blanket over head, bed in lowest position, call light within reach, respirations at 16 breaths per minute, in no apparent distress. Addendum: 03/30/19 at 0725 by ANA NAYLOR RN RICK Hays, endorsed that patient is a high fall risk. Side rails up x 3, was told that patient tries to get out of bed, patient is bedbound.
--- NOTE | 2019-03-30 07:14 | NUR ---
HAND-OFF: Report given to Geraldo CABRERA. Addendum: 03/30/19 at 0726 by GEOFF KUMAR RN Endorsed to Geraldo CABRERA that patient is a high fall risk, fall precautions will be implemented at all times.
[2019-03-30 08:00] VITALS: BP 120/60
[2019-03-30] MEDS: Vitamin B-12 500mcg tab ORAL SCH (08:35)
[2019-03-30] MEDS: Docusate 100mg/10ml Liq ORAL SCH ×2 (08:35→17:49)
[2019-03-30] MEDS: Aspirin EC 81mg tab ORAL SCH (08:35)
[2019-03-30] MEDS: Lisinopril 10mg tab ORAL SCH (08:36)
[2019-03-30] MEDS: Heparin 5000 units/ml inj SUBQ SCH ×2 (08:36→20:34)
[2019-03-30 12:00] VITALS: BP 121/62
--- NOTE | 2019-03-30 12:43 | General Progress Note ---
Assessment/Plan Problem List: (1) Schizophrenia ICD Codes: F20.9 - Schizophrenia, unspecified SNOMED: 74913102 (2) Toxic metabolic encephalopathy ICD Codes: G92 - Toxic encephalopathy SNOMED: 980857002 (3) Edema ICD Codes: R60.9 - Edema, unspecified SNOMED: 623889671, 146846568 (4) Cellulitis ICD Codes: L03.90 - Cellulitis, unspecified SNOMED: 506460360 Status: stable Assessment/Plan: iv abx per id diuresis per cards psych rx monitor lytes dvt/stress ulcer prophylaxis elevate arm dc planning on po abx tomorrow Subjective ROS Limited/Unobtainable: No Constitutional: Reports: malaise, weakness HEENT: Reports: no symptoms Cardiovascular: Reports: no symptoms Respiratory: Reports: cough Gastrointestinal/Abdominal: Reports: no symptoms Genitourinary: Reports: no symptoms Neurologic/Psychiatric: Reports: pre-existing deficit Endocrine: Reports: no symptoms Hematologic/Lymphatic: Reports: no symptoms Allergies: Coded Allergies: No Known Allergies (Unverified , 03/23/19) All Systems: reviewed and negative except above Subjective no new complaints. decreased pain and swelling left arm. no fevers. on iv abx. Objective Last 24 Hour Vital Signs Date Time Temp Pulse Resp B/P (MAP) Pulse Ox O2 Delivery O2 Flow Rate FiO2 03/30/19 09:00 Room Air 03/30/19 08:36 120/60 03/30/19 08:00 97.8 81 20 120/60 (80) 98 03/30/19 04:00 97.4 78 22 122/87 (99) 97 03/30/19 00:00 97.4 74 18 137/74 (95) 97 03/29/19 21:52 Room Air 03/29/19 20:00 98.7 78 20 129/74 (92) 97 03/29/19 16:00 98.0 91 17 131/66 (87) 96 Intake and Output 03/29/19 03/30/19 19:00 07:00 Intake Total 480 ml Balance 480 ml Intake Oral 480 ml # Voids 3 3 Laboratory Tests 03/30/19 01:10: Vancomycin Level Trough 9.4 Height (Feet): 5 Height (Inches): 3.00 Weight (Pounds): 140 Objective General Appearance: WD/WN, alert Neck: supple Cardiovascular: regular rhythm Respiratory/Chest: lungs clear Abdomen: normal bowel sounds, non tender, soft, no organomegaly Edema: 2+ Arm (L) Neurologic: end user consultant II-XII grossly normal, alert, oriented x 3, responsive Danial Watkins MD Mar 30, 2019 12:43
[2019-03-30] MEDS ORDERED: D5 1/2NS 1000ml IV ONE (14:09)
[2019-03-30] MEDS ORDERED: NS 500ML ONE (14:10)
--- NOTE | 2019-03-30 15:00 | Consultation ---
DATE OF CONSULTATION: 03/30/2019 INFECTIOUS DISEASES CONSULTATION This consult is for coverage of Dr. Rivera. CONSULTING PHYSICIAN: Bryson Mauro M.D. PRIMARY ATTENDING PHYSICIAN: Rashaun Goldman M.D. REASON FOR CONSULTATION: Left arm cellulitis. HISTORY OF PRESENT ILLNESS: This is a 78-year-old female [facility] because of pain, swelling, and edema of left upper extremity that was started 1 or 2 days before admission. At the time of admission, she had leukocytosis. She has history of left mastectomy for breast cancer many years ago. She started treatment on ceftriaxone since day of admission. Vancomycin was added on 03/27/2019. She also has psychiatric issues and is not a good source of history. PAST MEDICAL HISTORY: Breast cancer status post left mastectomy, COPD, hypothyroidism, anemia, diastolic CHF, diabetes, hypertension. ALLERGIES: No known drug allergies. MEDICATIONS: Getting cyanocobalamin, vancomycin, IV iron, Colace, lisinopril, ceftriaxone, lorazepam, aspirin, Lexapro, heparin, [place]. SOCIAL HISTORY: [facility] resident. No recent history of alcohol, drug abuse, smoking. REVIEW OF SYSTEMS: Very poor historian. Answer many question with I do not know. Seems to be sad and crying easily. PHYSICAL EXAMINATION: VITAL SIGNS: Temperature 97.8, pulse 81, blood pressure 120/60. GENERAL APPEARANCE: No acute distress. HEAD AND NECK: Have no teeth. HEART: Normal rate. LUNGS: Clear. ABDOMEN: Soft and nontender. EXTREMITIES: Left arm edema. No erythema. No open wounds. SKIN: Left breast small radical mastectomy scar. NEUROLOGIC: She is awake and alert, responsive, depressed and demented. LABORATORY AND DIAGNOSTIC DATA: WBC 7.9, hemoglobin 9.7, hematocrit 29.5, and platelets 556. Sodium 138, potassium 4.1, chloride 105, bicarbonate 23, BUN 22, creatinine 1, glucose 146. MRSA screening culture was positive. VRE negative. KPC negative. IMPRESSION: Cellulitis of left upper extremity, improving. Seems to have chronic lymphedema of the left upper extremity, iron-deficiency anemia, also have vitamin B12 deficiency, diastolic CHF, hypertension, hypothyroidism , major depression, and dementia. RECOMMENDATIONS: May discontinue vancomycin and ceftriaxone. We will start on p.o. doxycycline for three days.Keep the left arm elevated. At the end of my exam, I thank Dr. Goldman, for involving me in the care of this patient. Bryson Mauro M.D. DR: Denise JOB#: [id number] CC: VANESSA
[2019-03-30 16:00] VITALS: BP 130/66
--- NOTE | 2019-03-30 19:13 | NUR ---
HAND-OFF: Report given to Jeanne Mendoza RN. Patient in supine position, sleeping, respirations at 16 breaths per minute, room air, bed in lowest position, call light within reach, siderails up x 3, no c/o pain, no SOB, in no apparent distress, pillow under left arm.
--- NOTE | 2019-03-30 19:22 | NUR ---
NURSE NOTES: Received patient awake, oriented x 1, confused, resting in bed, kept clean and dry.
[2019-03-30 20:24] VITALS: BP 95/52
[2019-03-30] MEDS: Doxycycline Monohydrate 100mg ORAL SCH (20:32)
[2019-03-30] MEDS: Iron Sucrose 100 MG in NS 55 ML IV SCH (20:33)
[2019-03-31 00:09] VITALS: BP 105/60
--- NOTE | 2019-03-31 02:15 | Progress Note ---
DATE: 03/30/2019 CARDIOLOGY PROGRESS NOTE SUBJECTIVE: The patient has less pain and swelling. OBJECTIVE: VITAL SIGNS: Blood pressure 120/60, pulse 81, respirations 20. LUNGS: Clear. CARDIAC: Regular. ABDOMEN: Soft. EXTREMITIES: Trace edema. Left upper extremity with less erythema. IMPRESSION: 1. Cellulitis, resolved. 2. Acute on chronic diastolic congestive heart failure, now clinically compensated. 3. Hypertension, controlled. 4. B12 and iron deficiencies on replacement therapy. PLAN: 1. Iron replacement. 2. Continue current cardiovascular regimen including maintenance dose diuretic. 3. Oral antibiotics per Infectious Disease salesforce consultant. 4. Discharge planning. Rashaun Goldman M.D. DR: JONG JOB#: [id number] CC:
[2019-03-31 04:12] VITALS: BP 116/54
--- NOTE | 2019-03-31 06:53 | NUR ---
NURSE NOTES: Received report from Jeanne Roche RN. Patient sleeping in supine position, on room air, respirations at 15 breaths per minute, bed in lowest position, call light within reach.
--- NOTE | 2019-03-31 07:06 | NUR ---
HAND-OFF: Report given to Geraldo Herrera RN.
[2019-03-31] MEDS ORDERED: DOXYCYCLINE MO100 MG ORAL (07:28)
[2019-03-31 08:00] VITALS: BP 131/74
[2019-03-31] MEDS: Doxycycline Monohydrate 100mg ORAL SCH (08:57)
[2019-03-31] MEDS: Lisinopril 10mg tab ORAL SCH (08:57)
[2019-03-31] MEDS: Docusate 100mg/10ml Liq ORAL SCH (08:57)
[2019-03-31] MEDS: Vitamin B-12 500mcg tab ORAL SCH (08:58)
[2019-03-31] MEDS: Aspirin EC 81mg tab ORAL SCH (08:58)
[2019-03-31] MEDS: Heparin 5000 units/ml inj SUBQ SCH (09:01)
--- NOTE | 2019-03-31 10:26 | Infectious Diseases Prog Note ---
Assessment/Plan Assessment/Plan IMPRESSION: Cellulitis of left upper extremity, improving. chronic lymphedema of the left upper extremity, Iron-deficiency anemia, Vitamin B12 deficiency, Diastolic CHF, hypertension, hypothyroidism , major depression, Dementia. RECOMMENDATIONS: Continue p.o. doxycycline for 2 days. Keep the left arm elevated Subjective ROS Limited/Unobtainable: Yes Allergies: Coded Allergies: No Known Allergies (Unverified , 03/23/19) Objective Vital Signs Last 24 Hour Vital Signs Date Time Temp Pulse Resp B/P (MAP) Pulse Ox O2 Delivery O2 Flow Rate FiO2 03/31/19 09:00 Room Air 03/31/19 08:57 131/74 03/31/19 08:00 97.9 76 16 131/74 (93) 99 03/31/19 04:12 98.4 77 22 116/54 (74) 95 03/31/19 00:09 97.4 83 21 105/60 (75) 97 03/30/19 20:24 98.4 83 22 95/52 (66) 96 03/30/19 20:12 Room Air 03/30/19 16:00 98.0 92 20 130/66 (87) 98 03/30/19 12:00 97.8 80 20 121/62 (81) 98 Height (Feet): 5 Height (Inches): 3.00 Weight (Pounds): 140 General Appearance: no acute distress HEENT: mucous membranes moist Respiratory/Chest: lungs clear Breasts: other - left mastectomy Cardiovascular: normal rate Abdomen: soft, non tender Extremities: other - edema of left arm Skin: rash Neurologic/Psychiatric: other - sleeping Current Medications Medications (Trade) Dose Ordered Sig/Freddy Route PRN Reason Start Time Stop Time Status Last Admin Dose Admin Acetaminophen (Tylenol) 650 mg Q4H PRN ORAL Mild Pain/Temp > 100.5 03/24/19 00:30 04/23/19 00:29 03/25/19 09:45 Aspirin (Ecotrin) 81 mg DAILY ORAL 03/24/19 09:00 04/23/19 08:59 03/31/19 08:58 Cyanocobalamin (Vitamin B-12) 1,000 mcg DAILY ORAL 03/29/19 09:00 04/28/19 08:59 03/31/19 08:58 Docusate Sodium (Colace) 100 mg TWICE A DAY ORAL 03/26/19 10:00 04/25/19 09:59 03/31/19 08:57 Doxycycline Monohydrate (Doxycycline Monohydrate) 100 mg EVERY 12 HOURS ORAL 03/30/19 21:00 04/06/19 20:59 03/31/19 08:57 Escitalopram Oxalate (Lexapro) 10 mg DAILY ORAL 03/24/19 09:00 04/23/19 08:59 03/31/19 08:57 Heparin Sodium (Porcine) (Heparin 5000 units/ml) 5,000 units EVERY 12 HOURS SUBQ 03/24/19 09:00 04/23/19 08:59 03/31/19 09:01 Iron Sucrose 100 mg/Sodium Chloride 60 ml @ 240 mls/hr BEDTIME IV 03/27/19 21:00 03/31/19 21:14 03/30/19 20:33 Lisinopril (ZestriL) 10 mg DAILY ORAL 03/25/19 09:00 04/24/19 08:59 03/31/19 08:57 Lorazepam (Ativan) 1 mg Q6H PRN ORAL For Anxiety 03/24/19 14:15 03/31/19 14:14 03/29/19 17:47 Magnesium Hydroxide (Mom) 30 ml DAILYPRN PRN ORAL Constipation 03/24/19 00:30 04/23/19 00:29 03/29/19 08:54 Potassium Chloride (K-Dur) 20 meq DAILY ORAL 03/24/19 00:30 04/23/19 00:29 03/31/19 08:57 Bryson Mauro MD Mar 31, 2019 10:26
[2019-03-31 12:00] VITALS: BP 134/82
--- NOTE | 2019-03-31 14:32 | NUR ---
*-*DISCHARGE PLANNING*-* PATIENT HAS BEEN REFERRED BACK TO: [facility] P: [phone] F: [phone] *-*CLINICALS FAXED*-*
--- NOTE | 2019-03-31 14:34 | NUR ---
*-*DISCHARGE PLANNING*-* PATIENT HAS BEEN ACCEPTED BACK TO: [facility] P: [phone] F: [phone]
--- NOTE | 2019-03-31 14:35 | NUR ---
*-*DISCHARGE PLANN*-* PATIENT HAS BEEN ACCEPTED BACK TO: [facility] P: [phone] F: [phone] RM# [id number] [facility] S[facility]W JANELL [id number] ETA 3:30PM/ 1530PM
[2019-03-31 16:00] VITALS: BP_SYST 131; BP_SYST 139; BP_DIAS 74
--- NOTE | 2019-03-31 16:56 | NUR ---
NURSE NOTES: Patient going to [facility]. Gave report to John. Patient leaving with ambulance personnel in stable condition. Belongings given to ambulance personnel.
--- NOTE | 2019-03-31 17:15 | Discharge Summary ---
DATE OF ADMISSION: 03/23/2019 DATE OF DISCHARGE: 03/31/2019 ADMISSION DIAGNOSES: 1. Left upper extremity cellulitis. 2. History of encephalopathy. 3. History of schizoaffective disorder and schizophrenia. 4. Hypertension. 5. History of breast cancer, status post left mastectomy. 6. Lymphedema, cellulitis. DISCHARGE DIAGNOSES: 1. Left upper extremity cellulitis. 2. History of encephalopathy. 3. History of schizoaffective disorder and schizophrenia. 4. Hypertension. 5. History of breast cancer, status post left mastectomy. 6. Lymphedema, cellulitis. HOSPITAL COURSE: The patient is a pleasant female admitted from a residential facility with complaints of cellulitis evident in the entire left upper extremity. She has a prior history of mastectomy and has some chronic edema, but she had significantly more edema, erythema, and warmth of the arm. She received intravenous antibiotics. Cellulitis gradually improved. She had a venous duplex that showed no evidence of any DVT. CT scan of the shoulder showed no evidence of any joint infection or abscess. The patient had slow clinical improvement with IV antibiotic therapy, but upon discharge was stable for discharge. She was sent back to the residential facility. She will continue another week of oral antibiotic therapy. DISCHARGE MEDICATIONS: Please see discharge medication list for discharge medications. DIET: Regular. ACTIVITY: Ad-jazmine. FOLLOWUP: The patient will be followed up in one to two days at [facility]. Danial Watkins M.D. DR: CARLOS JOB#: [id number] CC:
--- NOTE | 2019-03-31 22:15 | Progress Note ---
DATE: 03/31/2019 CARDIOLOGY PROGRESS NOTE SUBJECTIVE: No shortness of breath. No chest pain. Left upper extremity swelling significantly reduced. Decreased pain. No redness and mobility improved. OBJECTIVE: VITAL SIGNS: Blood pressure 134/82, heart rate 74, respirations 17, afebrile, oxygen saturation 97% on room air. LUNGS: Clear. CARDIAC: Regular. Normal S1, S2 with a fourth heart sound. ABDOMEN: Soft. EXTREMITIES: Left upper extremity with minimal edema. IMPRESSION: 1. Cellulitis left upper extremity, resolving. 2. Concomitant resolution of edema. 3. Acute diastolic congestive heart failure, now clinically compensated. 4. Hypertensive heart disease with controlled blood pressure. 5. B12 and iron deficiencies, on replacement therapy. 6. Disposition, stable for return to [facility] facility. 7. Discharge medication regimen including cardiovascular drugs reviewed and reconciled with Dr. Watkins. 8. Maintenance dose diuretic discussed. Rashaun Goldman M.D. DR: KAYLEEN JOB#: [id number] CC:
== END 2019-03-31 16:58 | DRG 602 ==
LOC: EDBD 19:01 → EMR 21:00 → 4E 23:00 → EDBEDREQ 03-24 00:09 → 4E 03-24 00:30
DX: L03.114 Cellulitis of left upper limb (principal); I50.33 Acute on chronic diastolic (congestive) heart failure; E43 Unspecified severe protein-calorie malnutrition; G92 Toxic encephalopathy; I97.2 Postmastectomy lymphedema syndrome; E11.65 Type 2 diabetes mellitus with hyperglycemia; I11.0 Hypertensive heart disease with heart failure; J44.9 Chronic obstructive pulmonary disease, unspecified; Z85.3 Personal history of malignant neoplasm of breast; E03.9 Hypothyroidism, unspecified; F01.50 Vascular dementia, unspecified severity, without behavioral disturbance, psychotic disturbance, mood disturbance, and anxiety; I25.2 Old myocardial infarction; F25.9 Schizoaffective disorder, unspecified; F32.9 Major depressive disorder, single episode, unspecified; Z79.82 Long term (current) use of aspirin; I34.0 Nonrheumatic mitral (valve) insufficiency; I36.1 Nonrheumatic tricuspid (valve) insufficiency; H91.90 Unspecified hearing loss, unspecified ear; E61.1 Iron deficiency; E53.8 Deficiency of other specified B group vitamins; Y83.8 Other surgical procedures as the cause of abnormal reaction of the patient, or of later complication, without mention of misadventure at the time of the procedure
CPT/HCPCS: 36415; 71045; 80048; 80053; 80202; 82607; 82746; 83036; 83540; 83550; 83735; 83880; 84443; 84484; 85007; 85025; 87081; 93005; 93306; 93931; 96365; 96375; 99285; J8499

== ENCOUNTER 2019-04-03 02:07 | Emergency (ER) | payer MEDICARE, MEDICAID ==
[~2019-04-03] VITALS: Ht 157.5 cm; Wt 68.0 kg
[~2019-04-03 02:07] MED LIST: ACETAMINOPHEN500 MG ORAL; ASPIR 8181 MG ORAL; BISACODYL5 MG ORAL; DOCUSATE SODIU100 MG ORAL; DOXYCYCLINE MO100 MG ORAL; FUROSEMIDE20 M1 ORAL; LEXAPRO10 MG ORAL; MILK OF MA2400 MG/10 ORAL
--- NOTE | 2019-04-03 02:14 | Emergency Room Report ---
History of Present Illness General Chief Complaint: Multiple Trauma/Fall Source: Patient Present Illness HPI Patient presents from nursing facility with reports of forehead trauma Patient had an unwitnessed fall had obvious trauma to the forehead and sent to the emergency room patient has some mild underlying dementia makes the history of present illness somewhat limited Denies any headache denies any chest pain denies any back or flank pain Patient does not recall how she fell Allergies: Coded Allergies: No Known Allergies (Unverified , 03/23/19) Patient History Limited by: medical condition Past Medical History: see triage record Last Menstrual Period: na Now: No : 2 Para: 2 Reviewed Nursing Documentation: PMH: Agreed; PSxH: Agreed Nursing Documentation-PMH Hx Cardiac Problems: Yes - TX Hx Hypertension: Yes Hx COPD: Yes Hx Cancer: Yes - breast 2019 Hx Gastrointestinal Problems: No History Of Psychiatric Problem: Yes - dementia Hx Neurological Problems: Yes - hypothyroid Hx Dementia: Yes Review of Systems All Other Systems: limited - Other than the ones mentioned in the history of present illness all others are reviewed however they do stay limited due to the patient's mental status Physical Exam Vital Signs Date Time Temp Pulse Resp B/P (MAP) Pulse Ox O2 Delivery O2 Flow Rate FiO2 04/03/19 02:08 98.6 82 18 110/64 (79) 98 Room Air Sp02 EP Interpretation: reviewed, normal General Appearance: no apparent distress Head: other - 2 x 3 cm hematoma left forehead Eyes: bilateral eye PERRL ENT: EOM grossly intact, normal pharynx Neck: supple Respiratory: lungs clear, no retraction, no accessory muscle use Cardiovascular #1: regular rate, rhythm Gastrointestinal: non tender, soft Genitourinary: no CVA tenderness Musculoskeletal: other - Lymphedema involving the left arm Neurologic: alert Psychiatric: normal inspection Skin: other - Erythema rash involving the forearm on the right side lymphedema left arm Lymphatic: no adenopathy Medical Decision Making Diagnostic Impression: Primary Impression: Hematoma Additional Impression: Head injury ER Course Given the patient's history and presentation CT imaging was obtained no obvious intracranial hemorrhage is seen Patient remains hemodynamically stable remains awake and appropriate At this time is stable for close outpatient follow-up Rhythm Strip Diag. Results EP Interpretation: yes Rate: 80 Rhythm: NSR, no PVC's, no ectopy CT/MRI/US Diagnostic Results CT/MRI/US Diagnostic Results : Impression CT head : Soft tissue changes no acute intracranial hemorrhage Last Vital Signs Date Time Temp Pulse Resp B/P (MAP) Pulse Ox O2 Delivery O2 Flow Rate FiO2 04/03/19 02:08 98.6 82 18 110/64 (79) 98 Room Air Status: improved Disposition: XFER SNF Condition: Improved Scripts Nystatin (NYSTATIN) 15 Gm Powder 1 GM TP BID for 7 Days, GM Prov: Taj Cook DO 04/03/19 Additional Instructions: Transfer back to nursing facility Taj Cook DO Apr 03, 2019 02:14
[2019-04-03 02:15] VITALS: BP 110/72
--- NOTE | 2019-04-03 02:15 | NUR ---
ED Nurse Note: Patient brought in by ambulance from [facility] d/t unwitnessed fall at 2330. Patient aao x 3 and ambulatory but with unsteady gait. No c/o pain. Patient has left anterior head hematoma, skin clean, dry and intact. Patient also has left arm edema, per EMS, patient recently got diagnosed with cellulitis on 03/31/19 and is taking antibiotics. Patient changed into gown and placed on monitoring tech. no acute distress noted.
--- NOTE | 2019-04-03 02:39 | NUR ---
ED Nurse Note: Patient has history of left side breast cancer and mastectomy.
[2019-04-03] MEDS ORDERED: SYNTHROID125 MCG ORAL (02:44)
[2019-04-03] MEDS ORDERED: ACETAMINOPHEN325 M1 ORAL (02:44)
[2019-04-03] MEDS ORDERED: ZINC SULFATE220 M1 ORAL (02:44)
[2019-04-03] MEDS ORDERED: FERROUS SULFAT325 MG ORAL (02:44)
[2019-04-03] MEDS ORDERED: VITAMIN C500 M1 ORAL (02:44)
--- NOTE | 2019-04-03 03:07 | NUR ---
ED Nurse Note: Patient taken to CT in stable condition.
--- NOTE | 2019-04-03 03:55 | Diagnostic Imaging Report ---
Indications: Fell and hit back of head one day ago Technique: Spiral acquisitions obtained through the brain. Angled axial and coronal 5 x 5 mm slices were reconstructed. Total dose length product 1179 mGycm. CTDI vol(s) 53 mGy. Dose reduction achieved using automated exposure control Comparison: None. Findings: There is motion artifact which obscures the highest cuts. There is a left frontal extracranial scalp hematoma noted. No acute intracranial hemorrhage or edema. No mass effect nor midline shift. There is age-related enlargement of the ventricles and extra axial CSF spaces. Visualized orbits and sinuses are unremarkable. The mastoids are clear. Impression: Evidence of left extracranial scalp soft tissue injury Negative for acute intracranial bleed or mass effect Age-related volume loss This agrees with the preliminary interpretation provided overnight by [facility]. The CT scanner at [facility] is accredited by the [employer] and the scans are performed using protocols designed to limit radiation exposure to as low as reasonably achievable to attain images of sufficient resolution adequate for diagnostic evaluation.
--- NOTE | 2019-04-03 04:00 | NUR ---
ED Nurse Note: Report given to RICK Hammond at [facility].
[2019-04-03] MEDS ORDERED: NYSTATIN15 G2 TP (04:02)
[2019-04-03 04:32] VITALS: BP 134/75
[2019-04-03 05:15] VITALS: BP 139/79
--- NOTE | 2019-04-03 05:18 | NUR ---
ER DISCHARGE NOTE: Patient is cleared to be discharged per ERMD, pt is aox4, on room air, with stable vital signs. pt was given dc and prescription instructions, pt was able to verbalize understanding, pt id band removed. pt assisted by [facility] ambulance personnel to [facility]. pt stable upon discharge.
== END 2019-04-03 05:18 | disposition home or self-care (01) ==
LOC: EDBD 02:07 → EMR 02:31
DX: S00.83XA Contusion of other part of head, initial encounter (principal); J44.9 Chronic obstructive pulmonary disease, unspecified; F03.90 Unspecified dementia, unspecified severity, without behavioral disturbance, psychotic disturbance, mood disturbance, and anxiety; E03.9 Hypothyroidism, unspecified; I25.2 Old myocardial infarction; W01.0XXA Fall on same level from slipping, tripping and stumbling without subsequent striking against object, initial encounter; Y93.9 Activity, unspecified; Y92.129 Unspecified place in nursing home as the place of occurrence of the external cause; Z85.3 Personal history of malignant neoplasm of breast
CPT/HCPCS: 70450; 99284